=== PATIENT | female | born 1935 | race Caucasian/White ===

== ENCOUNTER 2021-04-05 20:18 | Inpatient (IN) ==
[2021-04-05] MEDS ORDERED: MORPHINE 4 MG/1 ML VIAL IV STA (21:45)
[2021-04-05] MEDS ORDERED: ONDANSETRON 4 MG/2 ML VIAL IV PRN ×2 (21:45→23:15)
[2021-04-05] MEDS ORDERED: HYDROmorphone 2 MG/1 ML VIAL IV PRN ×2 (23:07→23:20)
[2021-04-05] MEDS ORDERED: DEXTROSE 50% 25 GM/50 ML VIAL IV PRN (23:14)
[2021-04-05] MEDS ORDERED: GLUCAGON 1 MG VIAL IM PRN (23:14)
[2021-04-05] MEDS ORDERED: ACETAMINOPHEN 325 MG TABLET PO PRN (23:15)
[2021-04-05] MEDS ORDERED: DOCUSATE SODIUM 100 MG CAPSULE PO PRN (23:15)
[2021-04-06 01:30] LABS: Basophils % 0.1 % (0.0-0.8); Eosinophils % 0.1 % (0.00-10.9); Hematocrit 29.8 VOL% (35.7-47.0); Hemoglobin 9.6 GM/DL (12.0-16.0); Immature Granulocytes % 0.4 %; Immature Granulocytes Absolute 0.04 #; Lymphocytes # 0.9 10*3/uL (1.4-4.0); Lymphocytes % 9.2 % (21.3-54.2); Mean Corpuscular HGB Conc 32.2 GM/DL (32-36); Mean Platelet Volume 10.8 FL (9.6-12.0); Monocytes % 6.9 % (1.7-12.7); Neutrophils % 83.3 % (38.7-73.9); Platelet Count 147 T/CUMM (130-400); Red Blood Count 2.95 MC/CUMM (3.8-5.5); Red Cell Distribution Width 13.4 % (9.3-17.3); White Blood Count 9.9 T/CUMM (4-12)
[2021-04-06 01:58] LABS: INR 1.1; PT Patient Result 11.8 SECS (10.5-12.0)
[2021-04-06 01:59] LABS: Albumin 2.9 G/DL (3.4-5.0); Bilirubin,Total 0.7 MG/DL (0.2-1.0); Calcium 8.5 MG/DL (8.5-10.1); Osmolality,Calculated 286.3 MOS/KG (273-304); Potassium 3.7 MMOL/L (3.5-5.1); Total Protein 6.1 G/DL (6.4-8.2)
[2021-04-06] MEDS ORDERED: LIDOCAINE 2% 5 ML VIAL ONE (09:32)
[2021-04-06] MEDS ORDERED: PHENYLEPHRINE 1 MG/10 ML SYRINGE IV ONE (09:32)
[2021-04-06] MEDS ORDERED: KETAMINE 500 MG/10 ML VIAL ONE (09:32)
[2021-04-06] MEDS ORDERED: GLYCOPYRROLATE 0.4 MG/2 ML VIAL ONE (09:33)
[2021-04-06] MEDS ORDERED: BUPIVACAINE SPINAL 0.75% 2 ML AMP SPINAL ONE (09:33)
[2021-04-06] MEDS ORDERED: ROPIVACAINE 0.5% 30 ML VIAL ONE ×2 (10:11→10:12)
[2021-04-06] MEDS ORDERED: PHENYLEPHRINE 10 MG/1 ML VIAL IV ONE (10:24)
[2021-04-06] MEDS ORDERED: MAGNESIUM HYDROXIDE SUSP 30 ML UDCUP PO PRN (11:23)
[2021-04-06 14:20] LABS: Hematocrit 28.7 VOL% (35.7-47.0); Hemoglobin 8.9 GM/DL (12.0-16.0)
[2021-04-06 14:31] LABS: Bacteria,Urine Many /HPF (Few); Bilirubin,Urine Negative (Negative); Blood, Urine Negative (Negative); Glucose,Urine (UA) Negative (Negative); Ketones,Urine 5 mg/dL (Negative); Mucus,Urine Occasional /LPF (Occasional); Nitrite,Urine Negative (Negative); Protein,Urine 30 MG/DL; Squamous Epithelial Cell,Urine Occasional /HPF (0-10); Urine Appearance CLOUDY (Clear); Urine Color Yellow (Yellow); Urine Specific Gravity 1.016 (1.001-1.035); Urine Urobilinogen < 2.0 EU/DL (0.2-1.0)
[2021-04-06] MEDS: SODIUM CHLORIDE 0.9% 1,000 ML IV SCH (17:36)
[2021-04-06] MEDS: ENOXAPARIN 40 MG/0.4 ML SYRINGE SUBCUT SCH (18:13)
[2021-04-06] MEDS: CALCIUM (CARBONATE) 600 MG TABLET PO SCH (20:10)
[2021-04-07 07:11] LABS: Osmolality,Calculated 287.1 MOS/KG (273-304); Potassium 3.6 MMOL/L (3.5-5.1)
[2021-04-07] MEDS: cefTRIAXone 1,000 MG in SODIUM CHLORIDE 0.9% 100 ML IV SCH (07:56)
[2021-04-07] MEDS: ASPIRIN 325 MG TABLET PO SCH (08:00)
[2021-04-07] MEDS: SODIUM CHLORIDE 0.9% 1,000 ML IV SCH (08:00)
[2021-04-07] MEDS: CHOLECALCIFEROL 400 UNIT TABLET PO SCH (08:00)
[2021-04-07] MEDS: CALCIUM (CARBONATE) 600 MG TABLET PO SCH (08:00)
[2021-04-07 08:03] LABS: Hematocrit 19.3 VOL% (35.7-47.0); Immature Granulocytes % 0.6 %; Immature Granulocytes Absolute 0.04 #; Lymphocytes % 14.9 % (21.3-54.2); Mean Corpuscular HGB Conc 31.6 GM/DL (32-36); Mean Corpuscular Volume 103.2 FL (87-102); Mean Platelet Volume 11.3 FL (9.6-12.0); Monocytes % 10.6 % (1.7-12.7); Neutrophils % 73.9 % (38.7-73.9); Red Blood Count 1.87 MC/CUMM (3.8-5.5); White Blood Count 6.7 T/CUMM (4-12)
[2021-04-07 08:06] LABS: Hemoglobin 6.1 GM/DL (12.0-16.0); Platelet Count 93 T/CUMM (130-400)
[2021-04-07] MEDS ORDERED: SODIUM CHLORIDE 0.9% 1,000 ML IV PRN (08:43)
[2021-04-07 08:48] LABS: Anisocytosis 1+; Platelet Estimate Decreased
[2021-04-07 08:49] LABS: Macrocytosis Slight
[2021-04-07] MEDS ORDERED: TUBERCULIN SKIN TEST 0.1 ML SYRINGE INTRADERM ONE (12:07)
[2021-04-07 17:57] LABS: Hemoglobin 8.7 GM/DL (12.0-16.0)
[2021-04-07] MEDS: ENOXAPARIN 40 MG/0.4 ML SYRINGE SUBCUT SCH (18:00)
[2021-04-08] MEDS: CALCIUM (CARBONATE) 600 MG TABLET PO SCH ×2 (00:40→08:13)
[2021-04-08 05:28] LABS: Basophils % 0.3 % (0.0-0.8); Eosinophils # 0.1 10*3/uL (0.0-0.87); Eosinophils % 0.7 % (0.00-10.9); Hematocrit 25.2 VOL% (35.7-47.0); Hemoglobin 8.4 GM/DL (12.0-16.0); Immature Granulocytes % 1.2 %; Immature Granulocytes Absolute 0.09 #; Lymphocytes % 13.7 % (21.3-54.2); Mean Corpuscular HGB Conc 33.3 GM/DL (32-36); Monocytes % 9.8 % (1.7-12.7); Neutrophils % 74.3 % (38.7-73.9); Platelet Count 85 T/CUMM (130-400); Red Blood Count 2.68 MC/CUMM (3.8-5.5); Red Cell Distribution Width 18.7 % (9.3-17.3); White Blood Count 7.4 T/CUMM (4-12)
[2021-04-08 05:31] LABS: Hypochromasia 1+; Microcytosis 1+; Platelet Estimate Decreased
[2021-04-08] MEDS: SODIUM CHLORIDE 0.9% 1,000 ML IV SCH ×2 (05:57→18:36)
[2021-04-08] MEDS: CHOLECALCIFEROL 400 UNIT TABLET PO SCH (08:12)
[2021-04-08] MEDS: ASPIRIN 325 MG TABLET PO SCH (08:12)
[2021-04-08] MEDS: cefTRIAXone 1,000 MG in SODIUM CHLORIDE 0.9% 100 ML IV SCH (08:13)
[2021-04-08] MEDS ORDERED: PIPERACILLIN/TAZOBACTAM 3,375 MG in SODIUM CHLORIDE 0.9% 100 ML IV SCH (10:30)
[2021-04-08] MEDS: ERTAPENEM 1,000 MG in SODIUM CHLORIDE 0.9% 100 ML IV SCH (11:27)
[2021-04-08] MEDS: CALCIUM (CARBONATE) 500 MG TABLET PO SCH (21:17)
[2021-04-08] MEDS: ENOXAPARIN 40 MG/0.4 ML SYRINGE SUBCUT SCH (21:17)
[2021-04-09] MEDS: ASPIRIN 325 MG TABLET PO SCH (10:16)
[2021-04-09] MEDS: CHOLECALCIFEROL 400 UNIT TABLET PO SCH (10:16)
[2021-04-09] MEDS: CALCIUM (CARBONATE) 500 MG TABLET PO SCH ×2 (10:16→20:20)
[2021-04-09] MEDS: ERTAPENEM 1,000 MG in SODIUM CHLORIDE 0.9% 100 ML IV SCH (17:28)
[2021-04-09] MEDS: ENOXAPARIN 40 MG/0.4 ML SYRINGE SUBCUT SCH (20:20)
[2021-04-10 07:15] VITALS: BP 179/72
[2021-04-10] MEDS: CHOLECALCIFEROL 400 UNIT TABLET PO SCH (09:05)
[2021-04-10] MEDS: ASPIRIN 325 MG TABLET PO SCH (09:06)
[2021-04-10] MEDS: CALCIUM (CARBONATE) 500 MG TABLET PO SCH (09:06)
== END 2021-04-10 11:41 | disposition hospice, inpatient (51) | DRG 481 ==
LOC: EDUNIT# → EDBD → N.ED 20:18 → N.EDINP 23:05 → SUATTDRO 23:05 → N.EDINP 04-06 00:20 → N.3E 04-06 00:46
PROVIDERS: ADMIT Internal Medicine; ATTEND Internal Medicine